=== PATIENT | female | born 1975 | race Caucasian/White ===

== ENCOUNTER → 2018-03-27 10:10 | Outpatient (CLI) | payer BC, SELFPAY ==
--- NOTE | 2018-03-27 10:26 | XR_ITS ---
XR chest 2V HISTORY: ITS.REASON: LEFT SIDED CHEST WAL PAIN,PLEURISY ORDERING PHYSICIAN: Henry Marroquin MD PATIENT AGE: 43 years Technique: PA and lateral chest. COMPARISON: None FINDINGS: Nothing definitely acute. Upper normal markings right base could reflect some minimal atelectasis. There is a small nodular density at the left base measuring 9 mm project over the anterior left seventh rib. Subtle and May merely be nipple shadow t but slight lateral for such.. In addition A similar vague round density projected over the lower T-spine on lateral view. . Any old films would be helpful for comparison. If not available I would suggest CT of of chest particularly if patient is a smoker.. The cardiomediastinal silhouette and pulmonary vascularity are within normal limits. The lungs are clear without infiltrates or pleural effusion. Possible mild atelectasis toward right base. No acute bony abnormalities. IMPRESSION: 1.. No acute cardiac pulmonary findings 2. There is suggestion of a small 9 mm nodular at left left lung base. No prior studies for comparison. if no outside films readily available for comparison elsewhere suggest a CT chest to further evaluate , particularly if the patient is a smoker. Alternative would be a follow-up chest film in 3-4 months
[2018-03-27 10:52] LABS: Basophils % 0.3 % (0.1-2.0); Eosinophils # 0.2 K/mm3 (0.0-0.4); Eosinophils % 2.9 % (0.1-12.0); Hematocrit 41.7 % (37.0-47.0); Hemoglobin 14.2 g/dL (12.2-16.2); Lymphocytes # 1.8 K/mm3 (0.7-4.5); Lymphocytes % 24.4 K/mm3 (10-50); Mean Corpuscular Volume 88.3 fl (81-99); Monocytes # 0.3 K/mm3 (0.1-1.0); Neutrophils # 5.2 K/mm3 (1.8-7.8); Neutrophils % 68.3 % (37.0-80.0); Platelet Count 398 K/mm3 (142-424); Red Blood Count 4.73 M/mm3 (4.20-5.40); Red Cell Distribution Width 12.5 % (11.5-17.5); White Blood Count 7.5 K/mm3 (4.8-10.8)
[2018-03-27 11:39] LABS: Alanine Aminotransferase 19 U/L (12-78); Albumin Level 4.3 gm/dL (3.4-5.0); Albumin/Globulin Ratio 1.4 (1.1-1.8); Alkaline Phosphatase 71 U/L (46-116); Anion Gap 11.5 mEq/L (5-15); Aspartate Amino Transferase 12 U/L (15-37); Bilirubin,Total 0.6 mg/dL (0.2-1.0); Blood Urea Nitrogen 10 mg/dL (7-18); Carbon Dioxide 29 mmol/L (21.0-32.0); Chloride 103 mmol/L (98-107); Creatinine,Serum 0.73 mg/dL (0.55-1.02); Estimated Glomerular Filt Rate 87 ml/min (>60); GFR (African American) 105 ML/MIN (>60); Globulin 3.1 gm/dl (1.3-3.2); Glucose 101 mg/dL (74-106); Potassium 3.5 mmoL/L (3.5-5.1); Sodium 140 mmol/L (136-145); Total Protein,Serum 7.4 gm/dL (6.4-8.2)
== END ==
PROVIDERS: PCP Internal Medicine Adolescent Medicine; Visit Provider Internal Medicine Adolescent Medicine
DX: R07.89 Other chest pain (principal); R09.1 Pleurisy
CPT/HCPCS: 36415; 71046; 80053; 85025

== ENCOUNTER → 2018-04-03 10:29 | Outpatient (CLI) | payer BC, SELFPAY ==
--- NOTE | 2018-04-03 10:38 | CT_ITS ---
CT chest w con HISTORY: Solitary pulmonary nodule, abnormal chest x-ray, left-sided chest within the right lobe there is a 3 x 2 x 2.7 with a developing. Left following ITS.REASON: LUNG NODULE ORDERING PHYSICIAN: Henry Marroquin MD PATIENT AGE: 43 years COMPARISON: None TECHNIQUE: Axial images obtained following the administration of 75 mL of Isovue 370 . Sagittal, and coronal reformatted images are also generated and reviewed. All CT scans at the facility use one or more dose reduction, viz: automated exposure control, ma/kV adjustment per patient size (including targeted exams where dose is matched to indication, i.e. head), or iterative reconstruction technique. FINDINGS: No mediastinal or hilar mass or adenopathy. Normal heart size. No evidence of pericardial effusion. No evidence of aortic aneurysm or central pulmonary embolus. There is a 9 mm nodule within the left lower lobe posterior laterally corresponding to the chest x-ray. This does contain some central calcification and is consistent with a partially calcified granuloma. No other abnormalities are evident. No effusions or infiltrates. Upper abdominal images show prior cholecystectomy. IMPRESSION: 1. Left lower lobe nodule corresponds a partially calcified granuloma. 2. Otherwise negative CT chest
== END ==
PROVIDERS: PCP Internal Medicine Adolescent Medicine; Visit Provider Internal Medicine Adolescent Medicine
DX: R91.1 Solitary pulmonary nodule (principal)
CPT/HCPCS: 71260; Q9967

== ENCOUNTER → 2018-04-24 08:32 | Outpatient (CLI) | payer BC, SELFPAY ==
--- NOTE | 2018-04-24 08:38 | CA_ITS ---
PROCEDURE: 2-D M-mode and color Doppler study INDICATIONS FOR THE TEST: Chest pain + COPD Heart Murmur+ Tobacco Smoking Palpitations Fatigue Syncope Edema+ Hypertension Diabetes Mellitus Rheumatic Fever SOB+GARZA Obesity Hyperlipidemia Family History HD Additional History HX OF MVP PATIENT INFORMATION HEIGHT: 65 WEIGHT:200 GENDER: Female B/P:110/78 2-D/M-MODE INTERPRETATION: 2-D MEASUREMENTS OBSERVED VALUES IN CMS Right Ventricular Dimension (RVDd) 2.7 Interventricular Septum (Thickness)(IVsd) 1.0 Left Ventricular Internal Dimensions(LVIDd) 4.3 Left Ventricular Posterior Wall (Thickness)(LVPWd) 0.8 Aortic Root 3.1 Aortic Cusp Separation 2.1 Left Atrial Dimensions (LAD) 3.8 2D 1. Left atrium is upper limit of the normal size, left ventricle is normal size, there is no concentric left ventricular hypertrophy, visually estimated ejection fraction 55% with no obvious regional wall motion abnormality. 2. The right atrium and right ventricle are normal size and contractility. 3. The aortic valve is minimally thickened and fibrosed. 4. The mitral and tricuspid valve are grossly normal, there is no obvious mitral valve prolapse . 5. The pulmonic valve is poorly visualized. 6. No significant pericardial effusion noted. DOPPLER INTERROGATION: Doppler interrogation of the aortic, mitral and tricuspid valvular presence of mild mitral and tricuspid regurgitation, tricuspid regurgitation jet velocity is insufficient for calculation of the right ventricular systolic pressure, diastolic parameters are inconclusive. CONCLUSION: 1. Normal left ventricular size, preserved left ventricular systolic function, visually estimated ejection fraction 55% with no obvious regional wall motion abnormality, diastolic parameters are inconclusive. 2. Mild mitral and tricuspid regurgitation 3. No significant pericardial effusion noted.
== END ==
PROVIDERS: Family Provider Internal Medicine Adolescent Medicine; PCP Internal Medicine Adolescent Medicine; Visit Provider Internal Medicine Adolescent Medicine
DX: R06.09 Other forms of dyspnea (principal); R60.9 Edema, unspecified
CPT/HCPCS: 93306

== ENCOUNTER → 2018-05-14 10:07 | Outpatient (CLI) | payer BC, SELFPAY ==
[2018-05-14 11:34] VITALS: PULSE 75; PULSE 79
[2018-05-14 12:43] LABS: T4 (Thyroxine) 11.9 ug/dl (4.7-13.3); Thyroid Stimulating Hormone 0.14 uIU/ml (0.358-3.740)
[2018-05-15 12:46] LABS: Triiodothyronine (T3) Free 2.9 pg/mL (2.0-4.4)
== END ==
PROVIDERS: Family Provider Internal Medicine Adolescent Medicine; PCP Internal Medicine Adolescent Medicine; Visit Provider Internal Medicine Endocrinology, Diabetes & Metabolism
DX: R06.09 Other forms of dyspnea (principal)
CPT/HCPCS: 36415; 84436; 84443; 84481; 94060; 94640; 94726; 94729

== ENCOUNTER → 2018-10-08 14:08 | Outpatient (POV) | payer BC, SELFPAY ==
[2018-10-08 17:30] LABS: Basophils % 0.4 % (0.1-2.0); Eosinophils # 0.4 K/mm3 (0.0-0.4); Eosinophils % 3.8 % (0.1-12.0); Hematocrit 39.8 % (37.0-47.0); Hemoglobin 13.5 g/dL (12.2-16.2); Lymphocytes # 2.5 K/mm3 (0.7-4.5); Lymphocytes % 27.9 % (10-50); Mean Corpuscular HGB Conc 33.9 g/dL (31.8-35.4); Mean Corpuscular Hemoglobin 30.9 pg (27.0-31.2); Mean Corpuscular Volume 91.3 fl (81-99); Monocytes # 0.3 K/mm3 (0.1-1.0); Monocytes % 3.6 % (1.7-9.3); Neutrophils # 5.8 K/mm3 (1.8-7.8); Neutrophils % 64.4 % (37.0-80.0); Platelet Count 369 K/mm3 (142-424); Red Blood Count 4.36 M/mm3 (4.20-5.40); Red Cell Distribution Width 12.4 % (11.5-17.5); White Blood Count 9.1 K/mm3 (4.8-10.8)
[2018-10-11 07:12] LABS: Antinuclear Antibodies, IFA Positive (.)
[2018-10-12 23:07] LABS: D001-IgE D pteronyssinus <0.10 kU/L (Class 0); D002-IgE D farinae <0.10 kU/L (Class 0); E001-IgE Cat Dander 0.49 kU/L (Class I); E005-IgE Dog Dander <0.10 kU/L (Class 0); G002-IgE Bermuda Grass 0.13 kU/L (Class 0/I); G006-IgE Timothy Grass <0.10 kU/L (Class 0); I006-IgE Cockroach, German <0.10 kU/L (Class 0); Immunoglobulin E, Total 30 IU/mL (0-100); M001-IgE Penicillium chrysogen <0.10 kU/L (Class 0); M002-IgE Cladosporium herbarum <0.10 kU/L (Class 0); M003-IgE Aspergillus fumigatus <0.10 kU/L (Class 0); M006-IgE Alternaria alternata <0.10 kU/L (Class 0); T001-IgE Maple/Box Elder 0.12 kU/L (Class 0/I); T006-IgE Cedar, Mountain <0.10 kU/L (Class 0); T007-IgE Oak, White 0.16 kU/L (Class 0/I); T008-IgE Elm, American <0.10 kU/L (Class 0); T010-IgE Walnut 0.29 kU/L (Class 0/I); T011-IgE Maple Leaf Sycamore <0.10 kU/L (Class 0); T014-IgE Cottonwood <0.10 kU/L (Class 0); T015-IgE Ash, White 0.32 kU/L (Class I); T022-IgE Pecan, Hickory 0.11 kU/L (Class 0/I); T070-IgE White Mulberry <0.10 kU/L (Class 0); W001-IgE Ragweed, Short 9.98 kU/L (Class IV); W011-IgE Thistle, Russian <0.10 kU/L (Class 0); W014-IgE Pigweed, Common <0.10 kU/L (Class 0); W018-IgE Sheep Sorrel 0.14 kU/L (Class 0/I)
[2018-10-14 08:34] LABS: E072-IgE Mouse Urine <0.10 kU/L (Class 0)
== END ==
PROVIDERS: Nurse Practitioner Family; Visit Provider Internal Medicine
DX: R06.02 Shortness of breath (principal); M25.50 Pain in unspecified joint
CPT/HCPCS: 36415; 82785; 85025; 86003; 86038

== ENCOUNTER → 2018-10-30 17:29 | Outpatient (CLI) | payer BC, SELFPAY | PROVIDERS: PCP Internal Medicine Adolescent Medicine; Visit Provider Nurse Practitioner Family | DX: R53.83 Other fatigue (principal) | CPT/HCPCS: 95806 ==

== ENCOUNTER → 2019-01-14 12:50 | Outpatient (POV) | payer BC, SELFPAY | PROVIDERS: Visit Provider Internal Medicine | DX: Z00.00 Encounter for general adult medical examination without abnormal findings (principal) ==

== ENCOUNTER → 2019-02-28 10:58 | Outpatient (CLI) | payer BC, SELFPAY ==
--- NOTE | 2019-02-28 11:04 | XR_ITS ---
EXAM: XR cervical spine 5V HISTORY: ITS.REASON: CHEST PAIN AT REST,LT CERVICAL RAICULOPATHY ORDERING PHYSICIAN: Bev Harley APRN PATIENT AGE: 44 years COMPARISON: None FINDINGS: Normal alignment. No fracture or dislocation. No lytic or blastic change. No significant degenerative change. The disc spaces are preserved. IMPRESSION: No acute finding
== END ==
PROVIDERS: PCP Internal Medicine Adolescent Medicine; Visit Provider Nurse Practitioner Family
DX: R07.9 Chest pain, unspecified (principal); M54.12 Radiculopathy, cervical region
CPT/HCPCS: 72050

== ENCOUNTER → 2019-04-22 12:44 | Outpatient (POV) | payer BC, SELFPAY | PROVIDERS: Visit Provider Internal Medicine | DX: Z00.00 Encounter for general adult medical examination without abnormal findings (principal) ==

== ENCOUNTER → 2020-04-27 14:12 | Outpatient (CLI) | payer BC, SELFPAY | PROVIDERS: PCP Internal Medicine Adolescent Medicine; Visit Provider Nurse Practitioner Family | DX: G47.33 Obstructive sleep apnea (adult) (pediatric) (principal); R53.83 Other fatigue; Z99.89 Dependence on other enabling machines and devices | CPT/HCPCS: 94762 ==

== ENCOUNTER → 2020-05-19 09:19 | Outpatient (CLI) | payer BC, SELFPAY ==
[2020-05-19 13:52] LABS: Alanine Aminotransferase 10 U/L (12-78); Albumin Level 4.3 g/dl (3.5-5.0); Albumin/Globulin Ratio 1.7 (1.1-1.8); Alkaline Phosphatase 81 U/L (38-126); Anion Gap 15.4 mEq/L (5-15); Aspartate Amino Transferase 25 U/L (14-36); Bilirubin,Total 0.5 mg/dl (0.2-1.3); Blood Urea Nitrogen 14 mg/dl (7-17); Calcium 9.3 mg/dl (8.4-10.2); Carbon Dioxide 24 mmol/L (22.0-30.0); Chloride 102 mmol/L (98-107); Chol/HDL Ratio 3.8 (1-3.5); Cholesterol 162 mg/dl (140-200); Estimated Glomerular Filt Rate 90 ml/min (>60); GFR (African American) 109 ML/MIN (>60); Globulin 2.5 g/dL (1.3-3.2); Glucose 102 mg/dl (74-100); HDL Cholesterol 43 mg/dl (40-60); Potassium 4.4 mmoL/L (3.5-5.1); Sodium 137 mmol/L (136-145); Total Protein,Serum 6.8 g/dl (6.3-8.2); Triglycerides 153 mg/dl (30-150); VLDL Cholesterol 31 mg/dL (0-40)
[2020-05-19 14:03] LABS: Direct LDL Cholesterol 107.73 mg/dL (100-129)
[2020-05-19 14:23] LABS: Thyroid Stimulating Hormone 0.08 uIU/mL (0.465-4.68)
[2020-05-19 14:43] LABS: Hemoglobin A1C 5.4 % (4.0-6.0)
== END ==
PROVIDERS: Visit Provider Nurse Practitioner Family
DX: Z00.00 Encounter for general adult medical examination without abnormal findings (principal); E78.2 Mixed hyperlipidemia; E03.8 Other specified hypothyroidism
CPT/HCPCS: 36415; 80053; 80061; 83036; 84443

== ENCOUNTER 2024-05-14 16:00 | Outpatient (RCR) | payer BC, SELFPAY | END 2024-05-19 15:34 | disposition home or self-care (01) | LOC: PT 16:00 | PROVIDERS: Visit Provider Orthopaedic Surgery | DX: M54.50 Low back pain, unspecified (principal) | CPT/HCPCS: 97014; 97110; 97140; 97163; G0283 ==

== ENCOUNTER 2024-06-20 16:03 | Outpatient (CLI) | payer BC, SELFPAY ==
--- NOTE | 2024-06-20 16:07 | MM_ITS ---
PROCEDURE INFORMATION: Exam: MG Bilateral Screening 3D Mammography Exam date and time: 06/20/2024 3:54 PM Age: 49 years old Clinical indication: Screening examination TECHNIQUE: Imaging protocol: Bilateral Screening tomosynthesis and 2D mammography including computer-aided detection (CAD) when performed. COMPARISON: 1. MG DMDBAV DIG MAMM-DX MIGUELINA W/AVWS W/CAD 02/22/2017 1:53 PM 2. MG DMDBAV DIG MAMM-DX MIGUELINA W ADD VIEWS 08/09/2016 4:06 PM FINDINGS: MAMMOGRAPHY: Breast composition: The breasts are extremely dense, which lowers the sensitivity of mammography. Mass: None. Architectural distortion: None. Calcifications: No suspicious calcifications. Asymmetric density: None. Skin thickening: None. Axillary adenopathy: None. IMPRESSION: No mammographic evidence of malignancy. Annual screening is recommended unless otherwise clinically indicated. ASSESSMENT: BI-RADS Category 1: Negative.
== END 2024-06-20 23:59 | disposition home or self-care (01) ==
LOC: RAD 16:04
PROVIDERS: PCP Internal Medicine Adolescent Medicine; Visit Provider Internal Medicine Adolescent Medicine
DX: Z12.31 Encounter for screening mammogram for malignant neoplasm of breast (principal)
CPT/HCPCS: 77063; 77067

== ENCOUNTER 2025-08-26 10:36 | Outpatient (CLI) | payer BC, SELFPAY ==
--- OUTSIDE RECORDS SUMMARY | 2024-02-29 06:45 | XMS_ITS ---
Author Organization [facility] Address [address] [place] [address] Care Team Providers Care Building Construction Ironworker Name Role Phone Henry Marroquin Primary Care Provider Ivelisse Philippe [phone] REASON FOR VISIT back pain Encounters Encounter Location Date Provider Diagnosis [facility] [address] [address] 02/29/2024 Ivelisse Philippe Plan Of Treatment No Information Progress Notes * Judy TERRELL ADOB:[birth year] (50 yo F)Acc No.[id number]:02/29/2024 Progress Notes Patient: Judy Bobby Provider: Holli Philippe APRN :1975 A ge:49 Y S ex:Female Date:02/29/2024 Phone: Address:[address] [id number] Pcp:Henry Marroquin Subjective: * Chief Complaints: * B ack pain Billing Information: * Procedure Codes: * Electronic signature of Bonita Philippe APRN on 08/26/2025 at 10:39 AM EST Sign off status: Pending * Provider: Holli Philippe APRN Date: 0 02/29/2024 Generated for Printi ng/Faxing/eTransmitting on: 1 10/27/2024 10:39 AM EST
--- OUTSIDE RECORDS SUMMARY | 2024-12-06 16:30 | XMS_ITS ---
Author Organization [facility] Address [address] [place] [address] Care Team Providers Care Payroll Director Name Role Phone Henry Marroquin Primary Care Provider Migration, Provider Unavailable Unavailable Allergies Allergen (clinical drug ingredient) Drug/Non Drug Allergy documented on EMR Reaction Allergy Type Onset Date Status PREDNISONE PILLS (uncoded) Unknown Allergy Active sulfamethoxazole / trimethoprim Bactrim Unknown Drug Allergy [facility] Encounter Medications Medication SIG (Take, Route, Frequency, Duration) Notes Start Date End Date Status PROzac 10 MG Capsule 1 cap(s) orally onc e a day; Duration: 90 days Active Xigduo XR 5 MG-500 MG TABLET, EXTENDED RELEASE TAKE 1 TABLET BY MOUTH EVERY MORNING; Duration: 30 *Please review and pick correct strength-formulat ion from [facility] options. If intended option is not shown, discontinue and re-order from Quick Search* Active Synthroid 112 MCG Tablet 1 tab(s) orally once a day; Duration: 90 days Active Pantoprazole Sodium 40 MG Tablet Delayed Release 1 tab(s) orally once a day; Duration: 90 days Active Spironolactone 100 MG Tablet 1 tab(s) orally 2 times a day; Duration: 90 days Active Fluocinonide 0.05 % Cream 1 fede applied topically 3 times a day; Duration: 30 days Active Cetirizine HCl 10 MG Tablet 1 tab(s) orally once a day; Duration: 30 days prn 08/03/2022 Active OZEMPIC 4 MG/3 ML SOLUTION 1 MG SUBCUTANEOUSLY ONCE A WEEK; Duration: 28 *Please review for potential replacement for e-prescription and drug interaction check* Active Crestor 20 MG Tablet 1 tab(s) orally onc e a day; Duration: 90 days Active Cefdinir 300 MG Capsule 1 cap(s) orally every 12 hours; Duration: 7 days 11/06/2024 Active Encounters Encounter Location Date Provider Diagnosis [facility] [address] [place] [address] 12/06/2024 Provider Migration Cellulitis of lower leg L03.119 Assessments Encounter Date Diagnosis (ICD Code) Assessment Notes Treatment Notes Treatment Clinical Notes Section Notes 12/06/2024 Cellulitis of lower leg (ICD-10 - L03.119) Plan Of Treatment Medication Medication Name Sig Start Date Stop Date Notes PROzac 10 MG Capsule 1 cap(s) orally onc e a day; Duration: 90 days Cefdinir 300 MG Capsule 1 cap(s) orally every 12 hours; Duration: 7 days 11/06/2024 Progress Notes * Judy TERRELL ADOB:[birth year] (50 yo F)Acc No.[id number]:12/06/2024 Patient: Jeffrey maymaureenJudy A Provider: Joe Dalton :1975 A ge:49 Y S ex:Female Date:12/06/2024 Address:[address] [place] [address], [place], [id number] Pcp:Henry Marroquin Subjective: * Chief Complaints: * M ultum To [facility] Conversion Encounter * Medications: T akingCetirizine HCl 10 MG Tablet 1 tab(s) orally once a day , Notes to Pharmacist: prnFluocinonide 0.05 % Cream 1 fede applied topically 3 times a day Crestor 20 MG Tablet 1 tab(s) orally once a day OZEMPIC 4 MG/3 ML SOLUTION 1 MG SUBCUTANEOUSLY ONCE A WEEK , Notes to Pharmacist: *Please review for potential replacement for e-prescription and drug interaction check*Synthroid 112 MCG Tablet 1 tab(s) orally once a day Spironolactone 100 MG Tablet 1 tab(s) orally 2 times a day Pantoprazole Sodium 40 MG Tablet Delayed Release 1 tab(s) orally once a day Xigduo XR 5 MG- 500 MG TABLET, EXTENDED RELEASE TAKE 1 TABLET BY MOUTH EVERY MORNING , Notes to Pharmacist: *Please review and pick correct strength-formulation from [employer] options. If intended option is not shown, discontinue and re-order from Quick Search*Taking Cetirizine HCl 10 MG Tablet 1 tab(s) orally once a day , Notes to Pharmacist: prnTaking Fluocinonide 0.05 % Cream 1 fede applied topically 3 times a day Taking Crestor 20 MG Tablet 1 tab(s) orally once a day Taking OZEMPIC 4 MG/3 ML SOLUTION 1 MG SUBCUTANEOUSLY ONCE A WEEK , Notes to Pharmacist: *Please review for potential replacement for e-prescription and drug interaction check*Taking Synthroid 112 MCG Tablet 1 tab(s) orally once a day Taking Spironolactone 100 MG Tablet 1 tab(s) orally 2 times a day Taking Pantoprazole Sodium 40 MG Tablet Delayed Release 1 tab(s) orally once a day Taking Xigduo XR 5 MG-500 MG TABLET, EXTENDED RELEASE TAKE 1 TABLET BY MOUTH EVERY MORNING , Notes to Pharmacist: *Please review and pick correct strength-formulation from [employer] options. If intended option is not shown, discontinue and re-order from Quick Search* * Allergies: B actrimPREDNISONE PILLS Assessment: * Assessment: 1. C mel of lower leg - L03.119 (Primary) Plan: * Treatment: 2. O thers Start PROzac Capsule, 10 MG, 1 cap(s), orally, once a day, 90 days, 90 Capsule, Refills 1. ? Billing Information: * Procedure Codes: * Electronic signature of Sukhjinder eastman Migration on 08/26/2025 at 10:39 AM EST Sign off status: Pending * Provider: Joe burton Migration Date: 0 12/06/2024 Generated for Asad dillard/Ritchie/Beatrice on: 1 10/27/2024 10:39 AM EST
--- OUTSIDE RECORDS SUMMARY | 2025-08-26 10:39 | XMS_ITS | Clinical Summary ---
Author Organization Healthcare Address [address] [place] [address] Care Team Providers Care Pit Clerk Name Role Phone Henry Marroquin MD Primary Care Provider [phone] Family History Medical History Relation Name Comments Diabetes Father Hypertension Father Diabetes Other 1 Breast cancer Other 2 Conversions - Other Other 3 malignan t neoplasm of ovary Thyroid cancer Other 4 Lupus Other 5 Relation Name Status Comments Father Other 1 Other 2 Other 3 Other 4 Other 5 Social History Tobacco Use Types Packs/Day Years Used Date Smoking Tobacco: Former Alcohol Use Standard Drinks/Week Comments Yes 0 (1 standard drink = 0.6 oz pure alcohol) Alcoholic Drinks/day: Social alcohol use Comments Unknown Sex and Gender Information Value Date Recorded Sex Assigned at Not on file Legal Sex Female 7:06 PM EDT Gender Identity Not on file Sexual Orientation Not on file Last Filed Vital Signs Vital Sign Reading Time Taken Comments Blood Pressure 125/84 04/22/2019 1:11 PM EDT Pulse 85 04/22/2019 1:11 PM EDT Temperature 36.7 C (98.1 F) 04/22/2019 1:11 PM EDT Respiratory Rate 16 04/22/2019 1:11 PM EDT Oxygen Saturation - - Inhaled Oxygen Concentration - - Weight 90.7 kg (200 lb) 04/22/2019 1:11 PM EDT Height 165.1 cm (5' 5 ) 04/22/2019 1:11 PM EDT Body Mass Index 33.28 04/22/2019 1:11 PM EDT Plan of Treatment Not on file Care Teams Pit Clerk Relationship Specialty Start Date End Date Henry Marroquin MD [facility] [phone] PCP - General 01/14/21
--- OUTSIDE RECORDS SUMMARY | 2025-08-26 10:39 | XMS_ITS | Clinical Summary ---
Author Organization [facility] Address [address] [place] [address] Care Team Providers Care Rn Radiology Name Role Phone Unavailable Primary Care Provider Unavailabl e Social History Tobacco Use Types Packs/Day Years Used Date Smoking Tobacco: Never Assessed Comments Unknown Sex and Gender Information Value Date Recorded Sex Assigned at Not on file Legal Sex Female 9:22 PM EST Gender Identity Not on file Sexual Orientation Not on file Plan of Treatment Not on file Medical Devices Not on file
--- OUTSIDE RECORDS SUMMARY | 2025-08-26 10:39 | XMS_ITS | Patient Health Record ---
Author Organization Merged with [facility] Address [address] [facility] [address] [place] [address] Care Team Providers Care Durability Engineer Name Role Phone Henry Marroquin Primary Care Provider [phone] Bev Harley Unavailable [phone] Migration, Provider Unavailable Unavailable Yodit Martines Unavailable [phone] Allergies Allergen (clinical drug ingredient) Drug/Non Drug Allergy documented on EMR Reaction Allergy Type Onset Date Status PREDNISONE PILLS (uncoded) Unknown Allergy Active sulfamethoxazole / trimethoprim Bactrim Unknown Drug Allergy Active Results Component Value Reference Range Notes Rapid Strep (Not yet reviewe d by provider) Interpretation:Negative Performing Lab: Notes/Report: Negative Rapid screen Neg Rapid Strep Reviewed date:11/08/2024 08:56:37 AM Interpretation:Negative Performing Lab: Notes/Report: Negative Medications Medication SIG (Take, Route, Frequency, Duration) Notes Start Date End Date Status Amoxicillin 500 MG Capsule 1 capsule Ora lly twice a day; Duration: 10 days 08/26/2025 Active Crestor 20 MG Tablet 1 tab(s) orally onc e a day; Duration: 90 days Active Cetirizine HCl 10 MG Tablet 1 tab(s) ora lly once a day; Duration: 30 days prn 08/03/2022 Active Spironolactone 100 MG Tablet 1 tab(s) orally 2 times a day; Duration: 90 days Active FLUoxetine HCl 10 MG Capsule TAKE 1 CAPSULE BY MOUTH EVERY DAY; Duration: 90 Active Diflucan 150 MG Tablet 1 tablet Orally t jahaira and repeat in 3 days if needed 06/08/2025 Active Ozempic (1 MG/DOSE) 4 MG/3ML Solution Pen-injector 1 MG SUBCUTANEOUS ONCE A WEEK 28 DAYS; Duration: 28 Active Cepacol Extra Strength 15-2.6 MG Lozenge as directed Mouth/Throat As needed 08/26/2025 Active Clobetasol Propionate 0.05 % Solution 1 application Externally once a day; Duration: 14 days 05/27/2025 Active Clobetasol Propionate 0.05 % Ointment 1 application Externally Twice a day; Duration: 14 days 05/27/2025 Active Xigduo XR 5-500 MG Tablet Extended Release 24 Hour TAKE 1 TABLET BY MOUTH EVERY MORNING; Duration: 30 Active Synthroid 112 MCG Tablet 1 tab(s) orally once a day; Duration: 90 days Active Pantoprazole Sodium 40 MG Tablet Delayed Release 1 tab(s) orally once a day; Duration: 90 days Active Immunizations Vaccine Route Administration Date Status Comme nts Adacel (Tdap) IM Intramuscular 11/15/2011 Administered Boostrix IM Intramuscular 02/27/2023 Administered Flublok IM Intramuscular 06/13/2022 Administered FluMist Unknown 09/16/2012 Administered Social History Social History Additional Details Category Social Info Options Details Social History Occupation: Teacher at [employer] Travel outside [place]: no Alcohol: no Sexually active: yes Recreational drug use: no Exercise: no Home smoke detector use: yes Caffeine: yes 1 cup coffee laura ly Living Will No Section Notes: Lives with spouse and minor children. Lives with spouse and minor children. Lives with spouse and minor children. Lives with spouse and minor children. Lives with spouse and minor children. Lives with spouse and minor children. Lives with spouse and minor children. Lives with spouse and minor children. Lives with spouse and minor children. Lives with spouse and minor children. Lives with spouse and minor children. Lives with spouse and minor children. Lives with spouse and minor children. Lives with spouse and minor children. Lives with spouse and minor children. Lives with spouse and minor children. Lives with spouse and minor children. Lives with spouse and minor children. Lives with spouse and minor children. Lives with spouse and minor children. Lives with spouse and minor children. Lives with spouse and minor children. Lives with spouse and minor children. Lives with spouse and minor children. Lives with spouse and minor children. Lives with spouse and minor children. Lives with spouse and minor children. Lives with spouse and minor children. Lives with spouse and minor children. Lives with spouse and minor children. Lives with spouse and minor children. Problems Problem Type SNOMED Code ICD Code Onset Dates Problem Status W/U Status Risk Notes Problem Hypothyroidism (05584139) Other specified hypothyroidism (E03.8) Active confirmed Problem Mixed hyperlipidemia (443616244) Mixed hyperlipidemia (E78.2) Active confirmed Problem Gastro-esophageal reflux disease without esophagitis (375671807) Gastro-esophageal reflux disease without esophagitis (K21.9) Active confirmed Problem Paresthesia (finding) (68782291) Paresthesia of skin (R20.2) Active confirmed Problem Obese class I (finding) (511206134407975) Obesity (BMI 30.0-34.9) (E66.9) Active confirmed Problem Hypothyroidism (92347114) Hypothyroidism (acquired) (E03.9) Active confirmed Problem Anxiety (30806528) Anxiety (F41.9) Active confi rmed Problem Vitamin D deficiency (51300127) Vitamin D deficiency (E55.9) Active confirmed Problem Type II diabetes mellitus without complication (280906223) Diabetes mellitus type 2, noninsulin dependent (E11.9) Active confirmed Problem Polycystic ovary syndrome (disorder) (755794988) PCOS (polycystic ovarian syndrome) (E28.2) Active confirmed Problem Gastroesophageal reflux disease without esophagitis (811911309) Gastroesophageal reflux disease without esophagitis (K21.9) Active confirmed Problem Peripheral edema (64997126) Peripheral edema (R60.9) Active confirmed Problem Arthropathy (187640587) Arthropathy, 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) Active confirmed Problem Psoriatic arthritis (533775202) Psoriatic arthritis (L40.50) Active confirmed Problem Chronic dermatitis (09287843) Chronic dermatitis (L30.9) Active confirmed Problem Pulmonary nodule (034116850) Pulmonary nodule (R91.1) Active confirmed Problem Adult health examination (289839033) Healthcare maintenance (Z00.00) Active confirmed Problem Type II diabetes mellitus without complication (414399697) Type 2 diabetes mellitus without complication, without long-term current use of insulin (E11.9) Active confirmed Problem Seasonal allergic rhinitis (858477959) Seasonal allergic rhinitis, unspecified allergic rhinitis trigger (J30.2) Active confirmed Problem Plaque psoriasis (339986572) Plaque psoriasis (L40.0) Active confirmed Problem Hyperlipidemia (13712327) Other hyperlipidemia (E78.49) Active confirmed Vital Signs Heart Rate 80 /min 08/26/2025 Temperature 97.8 degrees Fahrenheit 08/26/2025 Blood pressure diastolic 76 mm Hg 08/26/2025 Height 65 in 08/26/2025 Blood pressure systolic 112 mm Hg 08/26/2025 Weight 174.2 lbs 08/26/2025 BMI 28.99 kg/m2 08/26/2025 Encounters Encounter Location Date Provider Diagnosis [facility] [address] [facility] [address] [place] [address] 12/06/2024 Provider Migration Cellulitis of lower leg L03.119 [facility] [address] [address] 09/11/2024 Henry Besson Bursitis of shoulder, left M75.52 [facility] [address] [address] 11/06/2024 Henry Besson Sore throat J02.9 and Cellulitis of lower leg L03.119 [facility] [address] [place] [address] 05/27/2025 Bev Cherri Plaque psoriasis L40.0 [facility] [address] [place] [address] 08/26/2025 Yodit Martines Sore throat J02.9 [facility] [address] [facility] [address] [place] [address] 10/01/2024 Bev Cherri [facility] [address] [place] [address] 12/16/2024 Henry Besson [facility] [address] [facility] [address] [place] [address] 01/15/2025 Henry Besson [facility] [address] [address] 04/22/2025 Henry Besson [facility] [address] [address] 04/23/2025 Henry Besson [facility] [address] [place] [address] 05/08/2025 Henry Nobles [address] [address] 06/08/2025 Henry Marroquin [address] [address] 08/04/2025 Henry Marroquin Assessments Encounter Date Diagnosis (ICD Code) Assessment Notes Treatment Notes Treatment Clinical Notes Section Notes 09/11/2024 Bursitis of shoulder, left (ICD-10 - M75.52) Patient received intra-articular dexamethasone injection in office Instructed patient to contact office in 1 week to determine efficacy of dexamethasone injection. Discussed benefits of physical therapy with patient and at-home rotator cuff exercises. Discussed warm/heat, discussed PT evaluation if needed. Discussed OTC NSAIDs 11/06/2024 Sore throat (ICD-10 - J02.9) Supportive care discussed. No changes in plan. Salt water gargles, fluid intake, Tylenol discussed 11/06/2024 Cellulitis of lower leg (ICD-10 - L03.119) Some redness and heat around the linear abrasion area. Am concerned about a cellulitis. Will treat with antibiotics, discussed how to appropriately wrap the psoriatic area on the leg without too tight bandaging 12/06/2024 Cellulitis of lower leg (ICD-10 - L03.119) 05/27/2025 Plaque psoriasis (ICD-10 - L40.0) Rec trial of alternate steroid as noted and encouraged referral back to dermatology to discuss options 08/26/2025 Sore throat (ICD-10 - J02.9) In office strep [id number] test performed and reviewed as negative today. However, despite negative test, physical exam and recent exposure to strep suggest need for throat culture and empiric treatment given that it is a holiday and there will be limited access to care and that the patient will be around her family. Discussed infectious precautions with strep pharyngitis. Prescription for amoxicillin and throat lozenges sent to the pharmacy, advised patient to start the amoxicillin if her throat pain worsens or she develops a fever. Other supportive care measures discussed. Will follow results of throat culture personally and reach out with clinically appropriate recommendations pending the findings. 09/11/2024 Other After informed consent and sterile prepping and draping I administered 2 mg of dexamethasone in the posterior aspect of the shoulder joint. Accompanied with 1 mL Novocain. No side effects or problems with shot. Instructions as noted above Plan Of Treatment Pending Test Test Name Order Date Rapid Strep 08/26/2025 H-T3 TOTAL 10/17/2014 H-MISC TEST 05/13/2012 C-TESTOSTERONE, BIOAVAILABLE 12/24/2018 C-CBC 02/28/2019 C-CMP 02/28/2019 C-CMP 10/09/2014 C-CMP 12/14/2020 C-LIPID PANEL 12/14/2020 C-MAGNESIUM 02/28/2019 C-VITAMIN B12 12/14/2020 C-THYROID PROFILE 12/14/2020 C-THYROID PROFILE 12/24/2018 C-THYROID PROFILE 12/27/2017 C-URINE CULTURE 12/21/2015 Urine Culture, Routine 09/16/2015 Rapid Flu, A 05/25/2011 Rapid Flu, B 05/25/2011 Pulmonary Function Test- Complete 2017 M-Throat Culture 08/26/2025 Insurance Providers Payer Name Payer Address Payer Phone Subscriber Number Group Number Insured Name Patient Relationship to Insured Coverage Start Date Coverage End Date [facility] [address] [place] [address] [id number] Jett Terrell Spouse - patient is the spouse of the insured Medications Administered Medication Instructions Date of Administration Dosage Notes Bicillin CR (adult dose) 07/02/2015 1.2 units Dexamethasone 4mg Injection 04/24/2022 4 mg Triamcinolone Acetonide 40mg Injection 02/28/2019 1 mL Kenalog 10/28/2013 1 mL Kenalog 07/02/2015 1 mL Kenalog 10/18/2015 1 mL Kenalog 08/09/2016 1 mL Medical (General) History Medical History History ICD Code Hypothyroidism asthma allergic conjunctivitis Scoliosis Recurrent UTI Eczema Psoriatic arthritis, treated for a brief time with Humira NAYAN on CPAP PCOS Negative cologuard 06/2022 Normal mammogram 06/26 Surgical History Surgery Date(Month/Year) Lumpectomy Appendectomy Gallbladder D/C R oophorectomy r/t benign mass 08/17 Hospitalization History Reason Date(Month/Year) Oophorectomy 08/17 Overnight stay for Appendectomy
== END 2025-08-26 23:59 | disposition home or self-care (01) ==
LOC: LAB 10:37
PROVIDERS: PCP Internal Medicine Adolescent Medicine
DX: J02.9 Acute pharyngitis, unspecified (principal)
CPT/HCPCS: 87070; 87077; 87186